=== PATIENT | female | born 1985 | race Caucasian/White ===

== ENCOUNTER 2017-07-19 12:07 | Day surgery (SDC) | payer OTHER, MEDICAID ==
[~2017-07-19 12:07] MED LIST: CEFAZOLIN 1 GM/50 ML (PMX) 50 ML IVPB; CEFAZOLIN 2 GM/50 ML (PMX) 50 ML IVPB
[2017-07-19] MEDS ORDERED: HYDROmorphONE (0.2 MG/ML) 10ML SYG IV ×3 (15:00)
[2017-07-19] MEDS ORDERED: CEFAZOLIN 1 GM INJ (15:00)
[2017-07-19] MEDS ORDERED: ONDANSETRON 4 MG INJ (15:00)
[2017-07-19] MEDS ORDERED: MIDAZOLAM 1 MG/ML 2 ML INJ IV (15:00)
[2017-07-19] MEDS ORDERED: EPHEDrine SULFATE 50 MG/5 ML SYG IV (15:00)
[2017-07-19] MEDS ORDERED: hydrALAzine 20 MG INJ IV (15:00)
[2017-07-19] MEDS ORDERED: OXYCODONE/ACETAMINOPHEN (5/325) TAB PO ×2 (15:00)
[2017-07-19] MEDS ORDERED: DIPHENHYDRAMINE 50 MG INJ IV (15:00)
[2017-07-19] MEDS ORDERED: LIDOCAINE 2% (SDV) 5 ML INJ (15:00)
[2017-07-19] MEDS ORDERED: METOCLOPRAMIDE 10 MG INJ IV (15:00)
[2017-07-19] MEDS ORDERED: MEPERIDINE 100 MG INJ (15:00)
[2017-07-19] MEDS ORDERED: PROPOFOL 20 ML (15:00)
[2017-07-19] MEDS ORDERED: LABETALOL HCL 20MG INJ IV (15:00)
[2017-07-19] MEDS ORDERED: METOCLOPRAMIDE 10 MG INJ (15:00)
[2017-07-19] MEDS: BUPIVACAINE 0.5%/EPI (SDV) 30 ML INJ (15:25)
[2017-07-19] MEDS: MEPERIDINE 25 MG INJ IV (16:07)
[2017-07-19] MEDS: ONDANSETRON 4 MG INJ IV (16:07)
== END 2017-07-23 11:44 | disposition home or self-care (01) ==
LOC: SDS 12:07
DX: M23.242 Derangement of anterior horn of lateral meniscus due to old tear or injury, left knee (principal); M23.92 Unspecified internal derangement of left knee; E66.9 Obesity, unspecified; Z68.37 Body mass index [BMI] 37.0-37.9, adult
CPT/HCPCS: 29881; 84703